=== PATIENT | female | born 1955 | race Caucasian/White ===

== ENCOUNTER → 2016-12-23 | Outpatient (CLI) | payer OTHER ==
[2016-07-16 11:33] VITALS: BP 165/85
[~2016-12-23] MED LIST: DOCU-27 PO; HYDR-971 PO; PANT20TA2 PO; POLY17PO5 PO
--- NOTE | 2016-12-23 14:43 | RAD ---
DATE: 12/23/2016 EXAM: DIGITAL SCREEN BILAT W/CAD HISTORY: Screening study. COMPARISON: 09/17/2015 This study was interpreted with the benefit of Computerized Aided Detection (CAD). FINDINGS: Digital MLO and CC mammograms of both breasts were obtained. Comparison study is dated 09/17/2015. The breast parenchyma is heterogeneously dense which can obscure a lesion on mammography (breast density code C). No spiculated mass is seen. No malignant appearing calcification or area of architectural distortion is noted. Since the previous examination there has been no significant interval change. IMPRESSION: BI-RADS Category 1, negative. There is no mammographic evidence of malignancy. BI-RADS CATEGORY: 1 NEGATIVE RECOMMENDED FOLLOW-UP: 12M 12 MONTH FOLLOW-UP PQRS compliance statement: Patient information was entered into a reminder system with a target due date 12/23/2017 for the next mammogram. Mammography is a sensitive method for finding small breast cancers, but it does not detect them all and is not a substitute for careful clinical examination. A negative mammogram does not negate a clinically suspicious finding and should not result in delay in biopsying a clinically suspicious abnormality. "Our facility is accredited by the [employer] Mammography Program."
== END | disposition home or self-care (01) ==
LOC: MAMMO 08:31
PROVIDERS: ATTEND Internal Medicine
DX: Z12.31 Encounter for screening mammogram for malignant neoplasm of breast (principal)
CPT/HCPCS: G0202; 77067

== ENCOUNTER → 2017-02-19 | Day surgery (SDC) | payer OTHER ==
[~2017-02-19] MED LIST changes: +IV RINGERS,LACTATED 1000ML 1,000 ML IV SCH; +LIDOCAINE 2% PF Vial for OR 5 ML VIAL. ONE; +POLY17PO29 PO; -POLY17PO5 PO; +PROPOFOL 40 ML IV ONE
[2017-02-19 09:45] VITALS: BP 131/78
--- NOTE | 2017-02-20 04:12 | CONS ---
DATE OF CONSULTATION: 02/19/2017 REFERRING PHYSICIAN: Dr. Filiberto Scherer. HISTORY OF PRESENT ILLNESS: A 61-year-old female with past medical history is significant for Carias's, history of dysphagia, esophageal stricture, hyperlipidemia, osteopenia, history of colon cancer status post resection seen for surveillance upper endoscopy with biopsies as well as surveillance colonoscopy with history of colon cancers with minimal dysphagia and minimal heartburn. No hematemesis, hematochezia, melena. Weight and appetite have been stable. Acid suppressive therapy is well tolerated, but no change in bowel habits since she takes her MiraLax for constipation. Weight and appetite are stable. She is otherwise in good health. PAST MEDICAL HISTORY: Esophageal stricture, Carias's, hyperlipidemia, osteopenia and gastritis. ALLERGIES: ERYTHROMYCIN. MEDICATIONS: Include Protonix 20 mg daily and MiraLax 17 g daily. FAMILY HISTORY: Significant for colon cancer with ____ ulcerative colitis with her sibling, hypertension with her father. PAST SURGICAL HISTORY: Low anterior resection of large polyp in 2002. REVIEW OF SYSTEMS: Per records. PHYSICAL EXAMINATION: GENERAL: Reveals a well-nourished, well-developed female. VITAL SIGNS: Temperature is 97.8, pulse 80, respiratory rate is 18. HEENT: Normocephalic, atraumatic head. Pupils and extraocular movements not tested. Sclerae anicteric. NECK: Supple. LUNGS: Clear. CARDIOVASCULAR: Reveals S1, S2 without S3, S4 or appreciable murmur. ABDOMEN: Reveals a soft abdomen, normal bowel sounds without appreciable hepatosplenomegaly. EXTREMITIES: Reveals no cyanosis, clubbing or edema. IMPRESSION: 1. Carias's surveillance exam is recommended with biopsies and possible dilatation ____ anatomical findings. 2. History of colon cancer, surveillance colonoscopy is recommended at this time. The patient is otherwise doing well, has tolerated prep, has no additional complaints. TI LINARES MD DR: LUANA/marcelo JOB#: [id number] / [id number]
--- NOTE | 2017-02-22 13:33 | PATHOLOGY ---
PATHOLOGY REPORT * * * * * * * * FINAL DIAGNOSIS: Esophageal biopsy, esophagus: - Segments of hyperplastic squamous esophageal mucosa consistent with reflux esophagitis. COMMENT: Sections of the distal esophageal biopsy reveal segments of focally tangentially oriented hyperplastic squamous esophageal mucosa. There are a few intraepithelial eosinophils. The findings are consistent with reflux esophagitis. There is no evidence of Carias's change, dysplasia, or malignancy. (JPM:; d/t: 02/22/17) REPORT ELECTRONICALLY SIGNED BY: Harjit Gonzales M.D. DATE/TIME: 02/22/2017 13:24 * * * * * * * * GROSS PATHOLOGY: Received in formalin labeled, Soraya Distal esophagus, are multiple small pinkish-bell mucosal fragments averaging 1 mm in greatest dimension each. They are filtered through a tissue bag and submitted entirely in cassette A1. VALERYK/pranay INITIAL CPT CODE(S): A; 39744 Professional services performed [place] [facility] [place] [address] Technical services performed by [facility] at [address] [place] [address]. SPECIMEN(S) RECEIVED: A.Distal esophageal biopsy CLINICAL HISTORY: History of Carias's/colon ca PATIENT: LIBERTAD AVENDANO /AGE: 312/20/1955 (Age: 61) PATIENT #: [id number] ALT CASE #: SPECIMEN COLLECTION DATE: 02/19/2017 SPECIMEN RECEIVED DATE: 02/19/2017 [facility] - [address] [place] [address] - PHONE: [phone] * * * END OF REPORT * * *
== END | disposition home or self-care (01) ==
LOC: ENDOS 08:00
PROVIDERS: ATTEND Internal Medicine Gastroenterology
DX: K64.0 First degree hemorrhoids (principal); K22.70 Barrett's esophagus without dysplasia; K29.50 Unspecified chronic gastritis without bleeding; K21.9 Gastro-esophageal reflux disease without esophagitis; Z72.89 Other problems related to lifestyle
CPT/HCPCS: 43239; 45378; 88305; J2704

== ENCOUNTER → 2018-02-11 | Outpatient (CLI) | payer OTHER | END | disposition home or self-care (01) | LOC: MAMMO 08:33 | DX: Z12.31 Encounter for screening mammogram for malignant neoplasm of breast (principal); Z85.038 Personal history of other malignant neoplasm of large intestine | CPT/HCPCS: 77063; 77067 ==

== ENCOUNTER → 2018-11-08 | Outpatient (CLI) | payer OTHER ==
[2017-02-19 09:45] VITALS: BP 131/78
[~2018-11-08] MED LIST changes: +DOCU-109 PO; -DOCU-27 PO; +HYDR-3164 PO; -HYDR-971 PO; -IV RINGERS,LACTATED 1000ML 1,000 ML IV SCH; -LIDOCAINE 2% PF Vial for OR 5 ML VIAL. ONE; -PROPOFOL 40 ML IV ONE
[2018-11-08 11:19] LABS: BASO % 1 % (0-3); EOS # 0.3 x10^3/uL (0.0-0.7); EOS % 5 % (0-3); HEMOGLOBIN 14.5 g/dL (12.0-15.5); LYMPH % 31 % (24-48); MEAN CORPUSCULAR HEMOGLOBIN 31 pg (25-35); MEAN CORPUSCULAR HGB CONC 34 g/dL (31-37); MEAN CORPUSCULAR VOLUME 93 fL (79-100); MONO # 0.6 x10^3/uL (0.0-1.1); MONO % 9 % (0-9); NEUT # 3.4 x10^3uL (1.8-7.7); NEUT % 54 % (31-73); PLATELET COUNT 244 x10^3/uL (140-400); RED BLOOD COUNT 4.65 x10^6/uL (3.50-5.40); WHITE BLOOD COUNT 6.3 x10^3/uL (4.0-11.0)
[2018-11-08 11:32] LABS: ALBUMIN 3.9 g/dL (3.4-5.0); CALCIUM 9.7 mg/dL (8.5-10.1); GFR 56.2; POTASSIUM 3.9 mmol/L (3.5-5.1); TOTAL BILIRUBIN 0.5 mg/dL (0.2-1.0); TOTAL PROTEIN 7.7 g/dL (6.4-8.2)
== END | disposition home or self-care (01) ==
LOC: LAB 10:33
PROVIDERS: ATTEND Internal Medicine
DX: Z13.220 Encounter for screening for lipoid disorders (principal); R06.09 Other forms of dyspnea
CPT/HCPCS: 36415; 80053; 80061; 84443; 85025

== ENCOUNTER → 2018-12-13 | Outpatient (CLI) | payer OTHER ==
[2017-02-19 09:45] VITALS: BP 131/78
[2018-12-13 09:19] LABS: GFR 56.2; POTASSIUM 4.2 mmol/L (3.5-5.1)
== END | disposition home or self-care (01) ==
LOC: LAB 08:30
DX: Z00.00 Encounter for general adult medical examination without abnormal findings (principal)
CPT/HCPCS: 36415; 80048

== ENCOUNTER → 2019-04-11 | Outpatient (CLI) | payer OTHER ==
[2017-02-19 09:45] VITALS: BP 131/78
--- NOTE | 2019-04-12 08:56 | RAD ---
DATE: 04/11/2019 8:00 AM EXAM: MAMMO MAZIN SCREENING BILATERAL HISTORY: routine screening evaluation. COMPARISON: Prior mammographic imaging dating back to 09/17/2015 Bilateral CC and MLO views of the breasts were performed. Bilateral breast tomosynthesis was performed in CC and MLO projections. This study was interpreted with the benefit of Computerized Aided Detection (CAD). Breast Density: The breast parenchyma is heterogeneously dense, which could reduce sensitivity of mammography. Breast parenchyma level C. FINDINGS: Benign calcifications are present. The parenchymal pattern appears stable. No suspicious masses, microcalcifications or architectural distortion is present to suggest malignancy in either breast. The visualized axillae are unremarkable. IMPRESSION: No mammographic evidence of malignancy. BI-RADS CATEGORY: 2 BENIGN FINDING(S) RECOMMENDED FOLLOW-UP: 12M 12 MONTH FOLLOW-UP Annual screening mammography is recommended, unless clinically indicated sooner based on symptoms or change in physical exam. PQRS compliance statement: Patient information was entered into a reminder system with a target due date 04/11/2020 for the next mammogram. Mammography is a sensitive method for finding small breast cancers, but it does not detect them all and is not a substitute for careful clinical examination. A negative mammogram does not negate a clinically suspicious finding and should not result in delay in biopsying a clinically suspicious abnormality. "Our facility is accredited by the [employer] Mammography Program." SERJIOD
== END | disposition home or self-care (01) ==
LOC: MAMMO 08:07
DX: Z12.31 Encounter for screening mammogram for malignant neoplasm of breast (principal); R92.1 Mammographic calcification found on diagnostic imaging of breast
CPT/HCPCS: 77063; 77067

== ENCOUNTER → 2019-04-26 | Outpatient (CLI) | payer OTHER ==
[2017-02-19 09:45] VITALS: BP 131/78
[~2019-04-26] MED LIST changes: +SINCALIDE 1.3 MCG in IV NORMAL SALINE 50ML 30 ML IV ONE
--- NOTE | 2019-04-26 08:13 | RAD ---
Examination: ABDOMEN LTD History: Right upper quadrant pain Comparison/Correlation: None Findings: Upper quadrant abdominal ultrasound exam was performed. Hepatic echotexture is normal. Liver length is 14.1 cm. No cholelithiasis. No bladder is normal. No biliary dilatation. Common bile duct is normal in diameter measuring 0.23 cm. Proximal pancreas is normal. Distal pancreas is obscured by bowel gas. Portal venous flow is normal. No biliary dilatation. No right upper quadrant ascites. Right kidney measures 10.6 cm x 4.9 cm x 5.8 cm. No right hydronephrosis. Inferior vena cava is unremarkable. Impression: Normal right upper quadrant ultrasound exam. Electronically signed by: Daquan Resendiz MD (04/26/2019 8:10 AM) [facility]
--- NOTE | 2019-04-26 11:10 | RAD ---
Hepatobiliary scan with gallbladder ejection fraction calculation 04/26/2019 Clinical History: Right upper quadrant abdominal pain for 2 to 3 months. Technique: After the intravenous administration of 5.5 mCi of technetium 99m Choletec, imaging of the right upper quadrant of the abdomen was performed using the gamma camera for 60 minutes. 1.3 mcg of CCK was infused intravenously and continued imaging of the right upper quadrant of the abdomen was performed for 30 minutes. A gallbladder ejection fraction was calculated. Findings: Normal perfusion, uptake and excretion of the radionuclide by the liver is seen. There is no evidence of cystic or common bile duct obstruction. The gallbladder is within normal limits in position and configuration. During the infusion of CCK normal emptying of the gallbladder is seen on the static images. The gallbladder ejection fraction is 96% which is within normal limits. Impression: Negative study Electronically signed by: Jarad Gilman MD (04/26/2019 11:07 AM) [facility]
== END | disposition home or self-care (01) ==
LOC: US 07:04
PROVIDERS: ATTEND Internal Medicine Gastroenterology
DX: R10.11 Right upper quadrant pain (principal)
CPT/HCPCS: 76705; 78227; A9537; J2805

== ENCOUNTER → 2019-06-02 | Outpatient (CLI) | payer OTHER ==
[2017-02-19 09:45] VITALS: BP 131/78
[~2019-06-02] MED LIST changes: -SINCALIDE 1.3 MCG in IV NORMAL SALINE 50ML 30 ML IV ONE
== END | disposition home or self-care (01) ==
LOC: SPEC 14:37
PROVIDERS: ATTEND Family Medicine
DX: Z12.4 Encounter for screening for malignant neoplasm of cervix (principal)
CPT/HCPCS: 88175

== ENCOUNTER → 2020-05-08 | Outpatient (CLI) | payer OTHER ==
[2017-02-19 09:45] VITALS: BP 131/78
== END | disposition home or self-care (01) ==
LOC: LAB 15:13
PROVIDERS: ATTEND Internal Medicine Gastroenterology
DX: Z01.818 Encounter for other preprocedural examination (principal); Z11.59 Encounter for screening for other viral diseases; R11.0 Nausea
CPT/HCPCS: 87426; U0003

== ENCOUNTER → 2020-05-10 | Day surgery (SDC) | payer OTHER ==
[~2020-05-10] MED LIST changes: +IV RINGERS,LACTATED 1000ML 1,000 ML IV SCH; +LIDOCAINE 2% PF 5 ML VIAL. ONE; +PROPOFOL 10 MG/ML (20ML) VIAL. IV ONE
[2020-05-10 08:10] VITALS: BP 100/60
--- NOTE | 2020-05-13 18:06 | PATHOLOGY ---
[facility] Accession Number: [id number] . 01 Material submitted: . PART A: stomach - GASTRIC POLYP BIOPSY PART B: esophagus - DISTAL ESOPHAGUS BIOPSIES. Modifiers: distal . 01 Clinical history: . Dysphagia. . 02 Diagnosis: A. Gastric biopsy, gastric polyp: - Fundic gland polyp. . B. Esophageal biopsies, distal esophagus: - Esophagitis with eosinophils. See comment. . (JPM:melissa; 05/13/2020) R 05/13/2020 1609 Local . 02 Comment: Sections of the gastric polyp biopsy reveal a polypoid segment of gastric body mucosa showing cystically dilated glands consistent with fundic gland polyp. There are no adenomatous changes or evidence of malignancy. . Sections of the distal esophageal biopsy reveal tangentially oriented segments of hyperplastic squamous esophageal mucosa. There are increased intraepithelial eosinophils. The differential diagnosis of esophagitis with eosinophils includes reflux esophagitis, "pill esophagitis", and eosinophilic esophagitis. Focally, there are greater than 20-30 intraepithelial eosinophils per high power field. The findings are consistent with eosinophilic esophagitis. There is no evidence of Carias's change, dysplasia, or malignancy. . (JPM:melissa; 05/13/2020) . 02 Electronically signed: . Harjit Gonzales MD, Pathologist NPI- [id number] . 01 Gross description: . A. Received in formalin labeled "Fabiola Lira, gastric polyp BX" is a 0.6 x 0.4 x 0.1 cm fragment of bell-brown soft tissue. The specimen is submitted entirely in A1. . B. Received in formalin labeled "Laithler, Fabiola, distal esophagus BXs" is a 0.8 x 0.4 x 0.1 cm aggregate of bell-brown soft tissue fragments. The specimen is submitted entirely in B1. ([facility]; 05/12/2020) [facility] 05/12/2020 1000 Local . 02 Pathologist provided ICD-10: K31.7, K20.9 . 02 CPT . 761996, 130514 Specimen Comment: A courtesy copy of this report has been sent to [phone] Specimen Comment: [id number] Specimen Comment: Report sent to / DR LARSON Performed at: 01 [facility] [address] [id number] MD Jhonathan Pastrana MD Phone: [phone] Performed at: 02 [facility] [address] [place], [place] [id number] MD Harjit Gonzales MD Phone: [phone]
== END | disposition home or self-care (01) ==
LOC: ENDOS 06:33
PROVIDERS: ATTEND Internal Medicine Gastroenterology
DX: K21.9 Gastro-esophageal reflux disease without esophagitis (principal); K22.2 Esophageal obstruction; I10 Essential (primary) hypertension; Z80.0 Family history of malignant neoplasm of digestive organs; Z82.49 Family history of ischemic heart disease and other diseases of the circulatory system; Z79.899 Other long term (current) drug therapy; Z98.890 Other specified postprocedural states
CPT/HCPCS: 43239; 43450; J2704

== ENCOUNTER → 2020-08-08 | Outpatient (CLI) | payer OTHER ==
[2020-05-10 08:10] VITALS: BP 100/60
[~2020-08-08] MED LIST changes: -IV RINGERS,LACTATED 1000ML 1,000 ML IV SCH; -LIDOCAINE 2% PF 5 ML VIAL. ONE; -PROPOFOL 10 MG/ML (20ML) VIAL. IV ONE
--- NOTE | 2020-08-08 17:35 | RAD ---
DATE: 08/08/2020 EXAM: MAMMO MAZIN SCREENING BILATERAL HISTORY: Screening COMPARISON: 04/11/2019, 02/11/2018, 12/23/2016 This study was interpreted with the benefit of Computerized Aided Detection (CAD). Breast Density: SCATTERED The breast parenchyma shows scattered fibroglandular densities. Breast parenchyma level B. FINDINGS: No mass, suspicious calcification, or architectural distortion in either breast. A 2.5 mm lesion in the lower outer left breast localizes to the skin on tomosynthesis and correlates with a marked skin lesion on 12/23/2016. IMPRESSION: No evidence of malignancy. BI-RADS CATEGORY: 2 BENIGN FINDING(S) RECOMMENDED FOLLOW-UP: 12M 12 MONTH FOLLOW-UP PQRS compliance statement: Patient information was entered into a reminder system with a target due date for the next mammogram. Mammography is a sensitive method for finding small breast cancers, but it does not detect them all and is not a substitute for careful clinical examination. A negative mammogram does not negate a clinically suspicious finding and should not result in delay in biopsying a clinically suspicious abnormality. "Our facility is accredited by the [employer] Mammography Program."
== END ==
LOC: MAMMO 08:01
PROVIDERS: ATTEND Family Medicine
DX: Z12.31 Encounter for screening mammogram for malignant neoplasm of breast (principal); N64.89 Other specified disorders of breast
CPT/HCPCS: 77063; 77067

== ENCOUNTER → 2021-01-07 | Outpatient (CLI) | payer OTHER ==
[2020-05-10 08:10] VITALS: BP 100/60
[2021-01-07 10:06] LABS: BASO % 1 % (0-3); EOS # 0.3 x10^3/uL (0.0-0.7); EOS % 6 % (0-3); HEMATOCRIT 43.8 % (36.0-47.0); HEMOGLOBIN 14.4 g/dL (12.0-15.5); LYMPH # 1.6 x10^3/uL (1.0-4.8); LYMPH % 31 % (24-48); MEAN CORPUSCULAR HEMOGLOBIN 30 pg (25-35); MEAN CORPUSCULAR HGB CONC 33 g/dL (31-37); MEAN CORPUSCULAR VOLUME 92 fL (79-100); MONO # 0.5 x10^3/uL (0.0-1.1); MONO % 9 % (0-9); NEUT # 2.8 x10^3/uL (1.8-7.7); NEUT % 53 % (31-73); PLATELET COUNT 233 x10^3/uL (140-400); RED BLOOD COUNT 4.76 x10^6/uL (3.50-5.40); RED CELL DISTRIBUTION WIDTH 13.4 % (11.5-14.5); WHITE BLOOD COUNT 5.3 x10^3/uL (4.0-11.0)
[2021-01-07 10:25] LABS: ALBUMIN 3.8 g/dL (3.4-5.0); ALBUMIN/GLOBULIN RATIO 1.1 (1.0-1.7); CALCIUM 8.9 mg/dL (8.5-10.1); CREATININE 0.9 mg/dL (0.6-1.0); GFR 62.8; POTASSIUM 4.4 mmol/L (3.5-5.1); TOTAL BILIRUBIN 0.5 mg/dL (0.2-1.0); TOTAL PROTEIN 7.4 g/dL (6.4-8.2)
[2021-01-07 10:26] LABS: CHOLESTEROL/HDL RATIO 3.9
== END ==
LOC: LAB 09:45
PROVIDERS: ATTEND Family Medicine
DX: Z11.59 Encounter for screening for other viral diseases (principal); E78.5 Hyperlipidemia, unspecified
CPT/HCPCS: 36415; 80053; 80061; 82306; 85025; 86803

== ENCOUNTER → 2021-01-15 | Outpatient (CLI) | payer OTHER ==
[2020-05-10 08:10] VITALS: BP 100/60
--- NOTE | 2021-01-15 11:57 | KCIC ---
INDICATION: Screening for osteopenia/osteoporosis. Postmenopausal evaluation. COMPARISON: None. TECHNIQUE: Bone densitometry was performed through the lumbar spine and proximal femur. IMPRESSION: Lumbar Spine: BMD: 1.1 T-Score: 0.5 Range: Normal. Scoliotic curvature the spine with degenerative changes. Proximal Femur: BMD: 0.71 T-Score: -1.9 Range: Osteopenic World Health Organization Criteria for Bone Density: T-Score: > -1.0: Normal Range < -1.0 to -2.5: Osteopenic Range < -2.5: Osteoporotic Range Electronically signed by: Carlitos Ocampo MD (01/15/2021 11:54 AM) [id number]
== END ==
LOC: KCIC DEXA 10:51
PROVIDERS: ATTEND Family Medicine
DX: N95.9 Unspecified menopausal and perimenopausal disorder (principal); M47.816 Spondylosis without myelopathy or radiculopathy, lumbar region
CPT/HCPCS: 77080

== ENCOUNTER 2021-06-13 09:08 | Emergency (ER) | payer OTHER ==
[~2021-06-13] VITALS: Ht 165.1 cm; Wt 68.6 kg
[2021-06-13 09:30] VITALS: BP 141/64
--- NOTE | 2021-06-13 09:43 | PHYS DOC ---
Past Medical History Past Medical History: No Pertinent History Past Surgical History: Other Additional Past Surgical Histo: colon resection Smoking Status: Never Smoker Alcohol Use: None Drug Use: None General Adult EDM: Chief Complaint: ELBOW PROBLEM HPI: HPI: Patient is a 65 year old female who present to ER for evaluation of right elbow redness. Patient said about 7 days ago she fell on her knee and caused an abrasion to the right elbow area. Patient denies any pain so she did not seek any medical tension. This morning she woke up and noted more redness on the back of her right elbow so she came in for evaluation. Patient denies any pain in her right elbow area. Denies any fever. Review of Systems: Review of Systems: Constitutional: Denies fever or chills. [] Eyes: Denies change in visual acuity. [] HENT: Denies nasal congestion or sore throat. [] Respiratory: Denies cough or shortness of breath. [] Cardiovascular: Denies chest pain or edema. [] GI: Denies abdominal pain, nausea, vomiting, bloody stools or diarrhea. [] : Denies dysuria. [] Musculoskeletal: Denies back pain or joint pain. [] Integument: Positive for redness of right elbow. Neurologic: Denies headache, focal weakness or sensory changes. [] Endocrine: Denies polyuria or polydipsia. [] Lymphatic: Denies swollen glands. [] Psychiatric: Denies depression or anxiety. [] Heart Score: C/O Chest Pain: N/A Risk Factors: Risk Factors: DM, Current or recent (<one month) smoker, HTN, HLP, family history of CAD, obesity. Risk Scores: Score 0 - 3: 2.5% MACE over next 6 weeks - Discharge Home Score 4 - 6: 20.3% MACE over next 6 weeks - Admit for Clinical Observation Score 7 - 10: 72.7% MACE over next 6 weeks - Early Invasive Strategies Allergies: Allergies: Allergies Coded Allergies Type Severity Reaction Last Updated Verified erythromycin base Allergy Intermediate 05/10/20 Yes Physical Exam: PE: Constitutional: Well developed, well nourished, no acute distress, non-toxic appearance. [] HENT: Normocephalic, atraumatic, bilateral external ears normal, oropharynx moist, no oral exudates, nose normal. [] Eyes: PERRLA, EOMI, conjunctiva normal, no discharge. [] Neck: Normal range of motion, no tenderness, supple, no stridor. [] Cardiovascular:Heart rate regular rhythm, no murmur [] Lungs & Thorax: Bilateral breath sounds clear to auscultation [] Abdomen: Bowel sounds normal, soft, no tenderness, no masses, no pulsatile masses. [] Skin: Warm, dry, no erythema, no rash. [] Back: No tenderness, no CVA tenderness. [] Extremities: There is full range of motion without any pain of the right elbow joint, no joint effusion. There is erythema on back of right elbow around scabbed area that patient injured 1 week ago. Neurologic: Alert and oriented X 3, normal motor function, normal sensory function, no focal deficits noted. [] Psychologic: Affect normal, judgement normal, mood normal. [] Current Patient Data: Vital Signs: Vital Signs Date Time Temp Pulse Resp B/P (MAP) Pulse Ox O2 Delivery O2 Flow Rate FiO2 06/13/21 09:30 98.3 76 16 141/64 (73) 96 Room Air 98.3 EKG: EKG: [] Radiology/Procedures: Radiology/Procedures: [] Course & Med Decision Making: Course & Med Decision Making Pertinent Labs and Imaging studies reviewed. (See chart for details) [] Dragon Disclaimer: Dragon Disclaimer: This electronic medical record was generated, in whole or in part, using a voice recognition dictation system. Departure Departure Impression: Primary Impression: Cellulitis of right elbow Disposition: HOME / SELF CARE / HOMELESS Condition: STABLE Referrals: SHAHEED LARSON MD (PCP) Follow up with your doctor as needed on wednesday Patient Instructions: Cellulitis Additional Instructions: Thank you for visiting our Emergency Department. We appreciate you trusting us with your care. If any additional problems come up don't hesitate to return to visit us. Please follow up with your primary care provider so they can plan additional care if needed and know about the problem that you had. If symptoms worsen come back to the Emergency Department. Any concerning symptoms that start such as chest pain, shortness of air, weakness or numbness on one side of the body, running high fevers or any other concerning symptoms return to the ER. Scripts Cephalexin (CEPHALEXIN) 500 Mg Tablet 1 TAB PO QID, #40 TAB Prov: AGUSTIN GLASS DO 06/13/21 Prednisone (PREDNISONE) 20 Mg Tablet 1 TAB PO DAILY for 7 Days, #7 TAB Prov: AGUSTIN GLASS DO 06/13/21 AGUSTIN GLASS DO Jun 13, 2021 09:43
[2021-06-13] MEDS ORDERED: PRED20TA PO (09:50)
[2021-06-13] MEDS ORDERED: CEPH500T PO (09:50)
== END 2021-06-13 10:01 | disposition home or self-care (01) ==
LOC: ER 09:08
DX: L03.113 Cellulitis of right upper limb (principal); Z88.1 Allergy status to other antibiotic agents
CPT/HCPCS: 99283

== ENCOUNTER → 2021-09-16 | Outpatient (CLI) | payer OTHER ==
[~2021-09-16] MED LIST changes: +CEPH500T PO; +PRED20TA PO
--- NOTE | 2021-09-16 13:58 | RAD ---
Bilateral digital screening 2-D and 3-D (digital breast tomosynthesis) mammogram: Reason for examination: Routine screening. Comparison: Mammograms from 08/08/2020 and 04/11/2019. Interpretation was made with the benefit of CAD. FINDINGS: Breast density: Category B. There are scattered areas of fibroglandular density. No suspicious breast mass, malignant appearing calcifications, or architectural distortion is seen. IMPRESSION: No evidence of malignancy. Assessment: BI-RADS 1. Negative. Recommendation: Routine screening mammograms. The patient will receive a letter with the results in the mail. Patient information will be entered i nto the mammography reminder system with a target recall date for the next mammogram. A reminder rafi er will be generated. Electronically signed by: Aura Thurman MD (09/16/2021 1:56 PM) [id number]
== END ==
LOC: MAMMO 08:03
PROVIDERS: ATTEND Family Medicine
DX: Z12.31 Encounter for screening mammogram for malignant neoplasm of breast (principal)
CPT/HCPCS: 77063; 77067

== ENCOUNTER → 2021-10-29 | Outpatient (CLI) | payer OTHER | LOC: LAB 15:19 | PROVIDERS: ATTEND Internal Medicine Pulmonary Disease | DX: U07.1 COVID-19 (principal) | CPT/HCPCS: U0003; U0005 ==

== ENCOUNTER → 2021-10-30 | Outpatient (CLI) | payer OTHER ==
[~2021-10-30] VITALS: Ht 165.1 cm; Wt 69.4 kg
[~2021-10-30] MED LIST changes: +SOTROVIMAB 500 MG in IV DEXTROSE 5% 50 ML IV ONE
[2021-10-30 15:07] VITALS: BP 114/72
[2021-10-30 15:24] VITALS: BP 122/69
[2021-10-30 15:43] VITALS: BP 122/69
[2021-10-30 16:01] VITALS: BP 130/79
[2021-10-30 16:19] VITALS: BP 122/71
== END | disposition home or self-care (01) ==
LOC: OPSVCOP 12:49
PROVIDERS: ATTEND Internal Medicine Pulmonary Disease
DX: U07.1 COVID-19 (principal)
CPT/HCPCS: J7060; M0247; Q0247; 96365

== ENCOUNTER → 2022-01-30 | Day surgery (SDC) | payer OTHER ==
[~2022-01-30] VITALS: Ht 165.1 cm; Wt 69.0 kg
[~2022-01-30] MED LIST changes: +IV RINGERS,LACTATED 1000ML 1,000 ML IV SCH; +LIDOCAINE 2% PF 5 ML VIAL. ONE; +PROPOFOL 10 MG/ML (20ML) VIAL. IV ONE; -SOTROVIMAB 500 MG in IV DEXTROSE 5% 50 ML IV ONE
[2022-01-30 06:55] VITALS: BP 131/72
[2022-01-30 08:45] VITALS: BP 127/76
--- NOTE | 2022-02-02 15:11 | PATHOLOGY ---
[facility] Accession Number: [id number] . 01 Material submitted: . esophagus - DISTAL ESOPHAGEAL BIOPSY. Modifiers: distal . 01 Clinical history: . COLON CA/GERD ESOPHAGITIS . 02 Diagnosis: Esophageal biopsies, distal esophagus: - Esophagitis with eosinophils. See comment. (JPM:coupon collection clerk; 02/02/2022) MBR 02/02/2022 1032 Local . 02 Comment: Sections of the distal esophageal biopsy reveal multiple segments of hyperplastic squamous esophageal mucosa. A couple of the biopsy segments show increased intraepithelial eosinophils. The differential diagnosis of esophagitis with eosinophils includes reflux esophagitis, "pill esophagitis", and eosinophilic esophagitis. Focally, there are greater than 20-30 intraepithelial eosinophils per high power field. This finding is suggestive of eosinophilic esophagitis. There is no evidence of Carias's change, dysplasia or malignancy. (JPM:coupon collection clerk; 02/02/2022) . 02 Electronically signed: . Harjit Gonzales MD, Pathologist NPI- [id number] . 01 Gross description: . The specimen is received in formalin, labeled "Passler, Fabiola, distal esophageal bx's" and the requisition designates the specimen as "distal esophagus bx" and consists of multiple bell irregular tissues aggregating 0.5 x 0.4 x 0.1 cm which are filtered and submitted in toto in A1.(KALISPEL; 01/30/2022) DKA/DKA 01/30/2022 1816 Local . 02 Pathologist provided ICD-10: K20.90 . 02 CPT . 640092 Specimen Comment: A courtesy copy of this report has been sent to [phone], [phone] Specimen Comment: [id number] Specimen Comment: Report sent to / DR LARSON Performed at: [address] [facility] [address], [place], [place] [id number] MD Drake Lima MD Phone: [phone] Performed at: 02 [facility] [address] [place], [place] [id number] MD Harjit Gonzales MD Phone: [phone]
== END | disposition home or self-care (01) ==
LOC: ENDOS 06:36
PROVIDERS: ATTEND Internal Medicine Gastroenterology
DX: Z12.11 Encounter for screening for malignant neoplasm of colon (principal); K64.0 First degree hemorrhoids; K63.89 Other specified diseases of intestine; K21.00 Gastro-esophageal reflux disease with esophagitis, without bleeding; K31.89 Other diseases of stomach and duodenum; K44.9 Diaphragmatic hernia without obstruction or gangrene; K22.70 Barrett's esophagus without dysplasia; E78.00 Pure hypercholesterolemia, unspecified; M81.0 Age-related osteoporosis without current pathological fracture; Z85.038 Personal history of other malignant neoplasm of large intestine; Z79.899 Other long term (current) drug therapy; Z98.890 Other specified postprocedural states; Z88.1 Allergy status to other antibiotic agents
CPT/HCPCS: 43239; 45378; J2704; 88305